=== PATIENT | female | born 1935 | race Caucasian/White ===

== ENCOUNTER 2016-09-12 16:19 | Emergency (ER) | payer OTHER ==
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
[2016-09-12 18:08] VITALS: BP 174/100; PULSE 63; RESP 16; TEMP 98.4; O2SAT 91
== END 2016-09-12 18:04 | disposition home or self-care (01) ==
LOC: CED 16:19
DX: S90.32XA Contusion of left foot, initial encounter (principal); W20.8XXA Other cause of strike by thrown, projected or falling object, initial encounter
CPT/HCPCS: 73630; G0463; 99214-PO